=== PATIENT | female | born 1990 | race Two or more races ===

== ENCOUNTER 2017-04-03 09:07 | Emergency (ER) | payer OTHER ==
[~2017-04-03] VITALS: Ht 160 cm; Wt 75.5 kg
[2017-04-03 09:13] VITALS: BP 148/78
== END 2017-04-03 10:41 | disposition home or self-care (01) ==
LOC: ED 10:30
DX: J00 Acute nasopharyngitis [common cold] (principal)
CPT/HCPCS: 71046; 99284

== ENCOUNTER 2018-03-02 02:10 | Emergency (ER) | payer OTHER ==
[~2018-03-02] VITALS: Ht 157.5 cm; Wt 75.0 kg
--- NOTE | 2018-03-02 02:27 | NUR ---
PT PRESENTED WITH C/O LEFT ANKLE PAIN AND SWELLING, PT STATED SHE FELL DOWN STAIRS AT HOME. PT SAYS SHE MISSED A STEP. CMS INTACT. MONITORS APPLIED, SIDERAILS UP X2, CALL LIGHT WITHIN REACH.
[2018-03-02] MEDS ORDERED: HYDROmorphone 2 MG/ML, 1ML IV ONE (02:30)
[2018-03-02] MEDS ORDERED: ONDANSETRON 2MG/ML, 2ML IVPush ONE (02:30)
[2018-03-02] MEDS ORDERED: ONDANSETRON 2MG/ML, 2ML ONE (02:33)
[2018-03-02] MEDS ORDERED: HYDROmorphone 2 MG/ML, 1ML ONE (02:34)
[2018-03-02 02:40] VITALS: BP 126/77
--- NOTE | 2018-03-02 02:41 | NUR ---
IV SITE STARTED, PT MEDICATED PER MAR, CALL LIGHT WITHIN REACH.
[2018-03-02] MEDS ORDERED: PROPOFOL 10 MG/ML, 20ML ONE (02:49)
[2018-03-02] MEDS ORDERED: PROPOFOL 10 MG/ML, 20ML IVPush ONE (03:00)
--- NOTE | 2018-03-02 04:08 | NUR ---
PROVIDED PT WITH CTUTCHES, PT ABLE TO DEMONSTATE USE WITHOUT DIFFICULTY.
== END 2018-03-02 04:25 | disposition home or self-care (01) ==
LOC: ED 03:35
DX: S82.852A Displaced trimalleolar fracture of left lower leg, initial encounter for closed fracture (principal); W10.9XXA Fall (on) (from) unspecified stairs and steps, initial encounter; Y93.89 Activity, other specified; Y92.89 Other specified places as the place of occurrence of the external cause; Y99.8 Other external cause status
CPT/HCPCS: 27818; 73610; 96374; 96375; 99152; 99285; J1170; J2405; 28435

== ENCOUNTER 2018-03-14 07:11 | Day surgery (SDC) | payer OTHER ==
[~2018-03-14] VITALS: Ht 160 cm; Wt 81.4 kg
[~2018-03-14 07:11] MED LIST: BUPIVACAINE/PF 0.5% ONE; LIDOCAINE 1%, 20ML ONE
[2018-03-14] MEDS ORDERED: BUPIVACAINE/PF 0.5% INFIL ONE (07:39)
[2018-03-14 07:43] VITALS: BP 123/86
[2018-03-14] MEDS ORDERED: FENTANYL PF 100 MCG/2ML ONE ×4 (07:58→11:36)
[2018-03-14] MEDS ORDERED: MIDAZOLAM 1 MG/ML, 2ML ONE (08:01)
[2018-03-14] MEDS ORDERED: ONDANSETRON ODT 8 MG ONE (08:08)
[2018-03-14] MEDS ORDERED: GABAPENTIN 300 MG CAPSULE ONE (08:08)
[2018-03-14] MEDS ORDERED: HYDR-3237 PO (08:14)
[2018-03-14 08:25] LABS: HCG UR SG 1.022 (1.003-1.030)
[2018-03-14] MEDS ORDERED: GABAPENTIN 300 MG CAPSULE PO ONE (08:30)
[2018-03-14] MEDS ORDERED: ACETAMINOPHEN 500 MG TABLET PO ONE (08:30)
[2018-03-14] MEDS ORDERED: ONDANSETRON ODT 8 MG PO ONE (08:30)
[2018-03-14] MEDS ORDERED: CEFAZOLIN 1,000 MG ONE (09:32)
[2018-03-14] MEDS ORDERED: PROPOFOL 10 MG/ML, 20ML ONE (09:32)
[2018-03-14] MEDS ORDERED: DEXAMETHASONE 4 MG/ML, 5ML ONE (09:32)
[2018-03-14] MEDS ORDERED: SUCCINYLCHOLINE 20 MG/ML, 10ML ONE (09:32)
[2018-03-14] MEDS ORDERED: LIDOCAINE-MPF 2% ,5ML ONE (09:32)
[2018-03-14] MEDS ORDERED: OXYcodone 5 MG/5 ML ORAL.SOL UDC PO PRN ×2 (10:30→15:00)
[2018-03-14] MEDS ORDERED: MEPERIDINE/PF 25MG/0.5ML IVPush PRN (10:30)
[2018-03-14] MEDS ORDERED: METOCLOPRAMIDE 5 MG/ML, 2ML IV PRN (10:30)
[2018-03-14] MEDS: FENTANYL PF 100 MCG/2ML IV PRN ×2 (11:15→11:22)
[2018-03-14] MEDS ORDERED: OXYcodone 5 MG/5 ML ORAL.SOL UDC ONE (11:19)
[2018-03-14] MEDS ORDERED: LORazepam 2 MG/ML, 1ML ONE (11:24)
[2018-03-14] MEDS: LORazepam 2 MG/ML, 1ML IVPush PRN ×2 (11:28→11:35)
[2018-03-14] MEDS: HYDROmorphone 2 MG/ML, 1ML IVPush PRN ×2 (11:49→11:54)
[2018-03-14] MEDS ORDERED: HYDROmorphone 1 MG/ML, 1ML ONE (11:52)
[2018-03-14] MEDS ORDERED: ONDANSETRON 2MG/ML, 2ML ONE (14:55)
[2018-03-14] MEDS ORDERED: SCOPOLAMINE PATCH, 1.5MG PATCH.TD72 TD ONE ×2 (15:39→16:00)
[2018-03-14] MEDS ORDERED: METOCLOPRAMIDE 5 MG/ML, 2ML IVPush ONE (16:00)
== END 2018-03-14 16:30 | disposition home or self-care (01) ==
LOC: OUT 07:11
PROVIDERS: ATTEND Orthopaedic Surgery Foot and Ankle Surgery
DX: S82.852A Displaced trimalleolar fracture of left lower leg, initial encounter for closed fracture (principal); S93.432A Sprain of tibiofibular ligament of left ankle, initial encounter; W10.8XXA Fall (on) (from) other stairs and steps, initial encounter; Y93.89 Activity, other specified; Y92.89 Other specified places as the place of occurrence of the external cause; Y99.8 Other external cause status; Z72.89 Other problems related to lifestyle
CPT/HCPCS: 27822; 27829; 64445; 73600; 76000; 81025; C1713; J0330; J0690; J1100; J1170; J2060; J2250; J2704; J2765; J3010; J3490; Q0162

== ENCOUNTER 2018-12-29 02:34 | Outpatient (CLI) | payer MEDICAID, OTHER ==
[~2018-12-29] VITALS: Ht 157.5 cm; Wt 88.6 kg
[~2018-12-29 02:34] MED LIST changes: -BUPIVACAINE/PF 0.5% ONE; +HYDR-3237 PO; -LIDOCAINE 1%, 20ML ONE
[2018-12-29 02:47] VITALS: BP 119/61
[2018-12-29 03:27] LABS: CULTURE INDICATED? YES; MICROSCOPIC INDICATED
[2018-12-29] MEDS ORDERED: PREN1TAB60 PO (03:56)
== END 2018-12-29 04:01 | disposition home or self-care (01) ==
LOC: LDOP 02:34
PROVIDERS: ATTEND Obstetrics & Gynecology
DX: O26.93 Pregnancy related conditions, unspecified, third trimester (principal); Z3A.37 37 weeks gestation of pregnancy; F12.20 Cannabis dependence, uncomplicated
CPT/HCPCS: 59025; 81001; 87086; 99211; G0463

== ENCOUNTER 2019-01-10 04:25 | Inpatient (IN) | payer MEDICAID, OTHER ==
[~2019-01-10] VITALS: Ht 160 cm; Wt 89.0 kg
[~2019-01-10 04:25] MED LIST changes: +PREN1TAB60 PO
[2019-01-10] MEDS ORDERED: OXYTOCIN 30U/ 0.9% NaCL 500ML 500 ML IV PRN (06:46)
[2019-01-10] MEDS ORDERED: OXYTOCIN 30U/ 0.9% NaCL 500ML 500 ML IV ONE (06:46)
[2019-01-10] MEDS ORDERED: D5%-LACTATED RINGERS 1,000 ML IV SCH (06:46)
[2019-01-10 06:59] VITALS: BP 115/73
[2019-01-10] MEDS ORDERED: TERBUTALINE 1 MG/ML, 1ML SQ PRN (07:00)
[2019-01-10] MEDS ORDERED: CALCIUM CARBONATE 500 MG TAB.CHEW PO PRN (07:00)
[2019-01-10] MEDS ORDERED: FENTANYL PF 100 MCG/2ML IVPush PRN (07:00)
[2019-01-10] MEDS ORDERED: TERBUTALINE 1 MG/ML, 1ML IVPush PRN (07:00)
[2019-01-10] MEDS ORDERED: FENTANYL PF 100 MCG/2ML IV PRN (07:00)
[2019-01-10] MEDS ORDERED: ONDANSETRON 2MG/ML, 2ML IVPush PRN (07:00)
[2019-01-10] MEDS: LACTATED RINGERS 1,000 ML IV SCH ×4 (07:15→21:59)
[2019-01-10 07:36] LABS: MEAN CORPUSCULAR HEMOGLOBIN 30.2 pg (27.0-34.8); MEAN CORPUSCULAR HGB CONC 33.3 g/dL (32.4-35.8); MEAN CORPUSCULAR VOLUME 90.6 fL (80-100); RED BLOOD COUNT 4.44 x10^6/uL (3.82-5.3)
[2019-01-10] MEDS ORDERED: OXYTOCIN 30U/ 0.9% NaCL 500ML 500 ML ONE ×2 (07:40→23:32)
[2019-01-10] MEDS ORDERED: NEWBORN KIT ONE (07:40)
[2019-01-10 07:58] LABS: MEAN PLATELET VOLUME 10.2 fL (7.4-10.4)
[2019-01-10 07:59] LABS: PLATELET COUNT 106 x10^3/uL (130-400)
[2019-01-10 08:02] LABS: <PLATELET ESTIMATE> DECREASED; <RBC MORPHOLOGY> NORMAL; BASOPHILS # (AUTO) 0.06 x10^3/uL (0-0.1); BASOPHILS % (AUTO) 1 % (0-1); EOSINOPHILS # (AUTO) 0.05 x10^3/uL (0-0.4); EOSINOPHILS % (AUTO) 1 % (1-7); GIANT PLATELETS 1+; LYMPHOCYTES # (AUTO) 2.26 x10^3/uL (1-3.4); LYMPHOCYTES % (AUTO) 22 % (22-44); MD MORPH REVIEW ONLY; MONOCYTES % (AUTO) 5 % (2-9); NEUTROPHILS # (AUTO) 7.41 x10^3/uL (1.8-6.8); NEUTROPHILS % (AUTO) 72 % (42-75)
[2019-01-10 08:03] LABS: LARGE PLATELETS 2+
[2019-01-10] MEDS ORDERED: BUPIVACAINE 0.25% ONE (13:18)
[2019-01-10] MEDS ORDERED: FENTANYL/BUPIV./NS/PF 250 ML EPIDCONT ONE (13:39)
[2019-01-10] MEDS ORDERED: FENTANYL/BUPIV./NS/PF 250 ML EPIDCONT SCH (13:45)
[2019-01-10] MEDS ORDERED: LACTATED RINGERS 1,000 ML IVBOLUS PRN (14:00)
[2019-01-10] MEDS ORDERED: EPHEDRINE 50 MG/ML, 1ML IVPush PRN (14:00)
[2019-01-10] MEDS ORDERED: EPHEDRINE 50 MG/ML, 1ML ONE (14:42)
[2019-01-10 19:05] VITALS: BP 114/71
[2019-01-10] MEDS ORDERED: ONDANSETRON 2MG/ML, 2ML ONE (21:56)
[2019-01-10] MEDS ORDERED: ACETAMINOPHEN 325 MG TABLET PO PRN (22:30)
[2019-01-10] MEDS ORDERED: MISOPROSTOL 200 MCG TABLET PR PRN (23:30)
[2019-01-10] MEDS ORDERED: ONDANSETRON 2MG/ML, 2ML IV PRN (23:30)
[2019-01-10] MEDS ORDERED: METHYLERGONOVINE 0.2 MG/ML IM PRN (23:30)
[2019-01-10] MEDS ORDERED: OXYcodone IR 5MG TABLET PO PRN (23:30)
[2019-01-10] MEDS ORDERED: SIMETHICONE 80 MG CHEW TAB PO PRN (23:30)
[2019-01-10] MEDS: OXYTOCIN 30U/ 0.9% NaCL 500ML 500 ML IV SCH (23:35)
[2019-01-11 01:35] VITALS: BP 103/66
[2019-01-11 04:00] VITALS: BP 112/70
[2019-01-11] MEDS: IBUPROFEN 600 MG TABLET PO PRN ×2 (04:05→23:39)
[2019-01-11] MEDS: DOCUSATE 100 MG CAPSULE PO PRN ×2 (07:21→23:39)
[2019-01-11] MEDS: PRENATAL VIT/IRON/FA 1 EACH TABLET PO SCH (07:21)
[2019-01-11] MEDS: OXYcodone/APAP 5/325MG TABLET PO PRN ×4 (07:21→23:40)
[2019-01-11 07:45] VITALS: BP 125/82
[2019-01-11 08:52] LABS: MEAN CORPUSCULAR HEMOGLOBIN 29.6 pg (27.0-34.8); MEAN CORPUSCULAR HGB CONC 32.6 g/dL (32.4-35.8); MEAN CORPUSCULAR VOLUME 90.8 fL (80-100); MEAN PLATELET VOLUME 12.5 fL (7.4-10.4); PLATELET COUNT 148 x10^3/uL (130-400); RED BLOOD COUNT 4.13 x10^6/uL (3.82-5.3); RED CELL DISTRIBUTION WIDTH 14.9 % (9.6-15.2)
[2019-01-11 09:10] LABS: BASOPHILS # (AUTO) 0.04 x10^3/uL (0-0.1); BASOPHILS % (AUTO) 0 % (0-1); EOSINOPHILS # (AUTO) 0.03 x10^3/uL (0-0.4); EOSINOPHILS % (AUTO) 0 % (1-7); LYMPHOCYTES # (AUTO) 2.19 x10^3/uL (1-3.4); LYMPHOCYTES % (AUTO) 18 % (22-44); MD SCAN; MONOCYTES # (AUTO) 0.64 x10^3/uL (0.2-0.8); MONOCYTES % (AUTO) 5 % (2-9); NEUTROPHILS # (AUTO) 9.51 x10^3/uL (1.8-6.8); NEUTROPHILS % (AUTO) 77 % (42-75)
[2019-01-11] MEDS: OXYTOCIN 30U/ 0.9% NaCL 500ML 500 ML IV SCH ×2 (09:15→19:15)
[2019-01-11 14:43] VITALS: BP 118/77
[2019-01-11 21:00] VITALS: BP 113/74
[2019-01-12] MEDS: OXYTOCIN 30U/ 0.9% NaCL 500ML 500 ML IV SCH (05:15)
[2019-01-12 07:30] VITALS: BP 110/68
[2019-01-12] MEDS: DOCUSATE 100 MG CAPSULE PO PRN (07:30)
[2019-01-12] MEDS: PRENATAL VIT/IRON/FA 1 EACH TABLET PO SCH (07:30)
[2019-01-12] MEDS ORDERED: IBUP200T49 PO (08:11)
[2019-01-12] MEDS ORDERED: OXYC-302 PO (08:12)
== END 2019-01-12 12:00 | disposition home or self-care (01) | DRG 807 ==
LOC: LDIP 06:43 → 2NW 01-11 01:20
PROVIDERS: ADMIT Obstetrics & Gynecology; ATTEND Obstetrics & Gynecology
PROC: 10E0XZZ Delivery of Products of Conception, External Approach (ICD-10-PCS; principal; 2019-01-10)
PROC: 10907ZC Drainage of Amniotic Fluid, Therapeutic from Products of Conception, Via Natural or Artificial Opening (ICD-10-PCS; 2019-01-10)
PROC: 3E033VJ Introduction of Other Hormone into Peripheral Vein, Percutaneous Approach (ICD-10-PCS; 2019-01-10)
PROC: 0HQ9XZZ Repair Perineum Skin, External Approach (ICD-10-PCS; 2019-01-10)
PROC: 3E0R3BZ Introduction of Anesthetic Agent into Spinal Canal, Percutaneous Approach (ICD-10-PCS; 2019-01-10)
PROC: 00HU33Z Insertion of Infusion Device into Spinal Canal, Percutaneous Approach (ICD-10-PCS; 2019-01-10)
DX: O43.193 Other malformation of placenta, third trimester (principal); Z37.0 Single live birth; O70.0 First degree perineal laceration during delivery; Z3A.39 39 weeks gestation of pregnancy; Z83.3 Family history of diabetes mellitus
CPT/HCPCS: 36415; J7121; 85025; 86850; 86900; 86923; G0378; J2405; J3490; J2590; J3010; J7120